=== PATIENT | female | born 1970 | race Caucasian/White ===

== ENCOUNTER → 2016-03-16 | Outpatient (CLI) | payer BC, OTHER | END | disposition home or self-care (01) | LOC: LAB 09:21 | PROVIDERS: ATTEND Specialist | DX: N83.209 Unspecified ovarian cyst, unspecified side (principal) | CPT/HCPCS: 82378; 86304 ==

== ENCOUNTER → 2016-03-23 | Outpatient (CLI) | payer OTHER | END | disposition home or self-care (01) | LOC: LAB 10:19 | PROVIDERS: ATTEND Specialist | DX: N83.209 Unspecified ovarian cyst, unspecified side (principal) | CPT/HCPCS: 36415; 82565; 84520 ==